=== PATIENT | female | born 1990 | race Two or more races ===

== ENCOUNTER 2019-11-14 05:22 | Emergency (ER) | payer BC, OTHER ==
[~2019-11-14] VITALS: Ht 160 cm; Wt 52.2 kg
--- NOTE | 2019-11-14 05:30 | NUR ---
ED Nurse Note: Pt ambulated to ED from home c/o fast heartbeat that woke her up, a few hrs ago. HR 170's, pt states this has happened before years ago. Pt denies cardiac hx otherwise, pt placed on property assessment monitor, ERMD at bedside, labs sent
[2019-11-14 05:35] VITALS: BP 127/95
[2019-11-14] MEDS ORDERED: Adenosine 6mg/2ml Inj IVP ONE (05:45)
--- NOTE | 2019-11-14 05:47 | Emergency Room Report ---
History of Present Illness General Chief Complaint: Palpitations Source: Patient (Kevyn Weston MD) Present Illness HPI This is a 29-year-old female with no past medical history. She presents with chief complaint of palpitation. She says she had this problem on and off for years but never been able to capture it. Sometimes with a heart rate beating fast, she can count beats per minute. Usually lasts about 30 minutes and go away. This onset occurred around 4:00 AM. She was working upstairs and felt her heart beating fast. She was able to get an EKG which showed heart rate in the 170s. She denies any shortness of breath. She denies any nausea vomiting. He denies any chest pain or dizziness or syncope. Never had any follow-up with regulatory affairs consultant before. (Kevyn Weston MD) Allergies: Coded Allergies: No Known Allergies (Unverified , 11/14/19) COVID-19 Screening Contact w/high risk pt: Yes Recent Travel to affected area: No Experienced COVID-19 symptoms?: No COVID-19 Testing performed BOBBIN COLLECTOR: No (Kevyn Weston MD) Patient History Past Medical History: see triage record, old chart reviewed Past Surgical History: none Pertinent Family History: none Social History: Denies: smoking Last Menstrual Period: current Now: No Immunizations: other Reviewed Nursing Documentation: PMH: Agreed; PSxH: Agreed (Kevyn Weston MD) Review of Systems Eye: Denies: eye pain, blurred vision ENT: Denies: ear pain, nose congestion, throat swelling Respiratory: Denies: cough, shortness of breath Cardiovascular: Reports: palpitations; Denies: chest pain Gastrointestinal: Denies: abdominal pain, diarrhea, nausea, vomiting Musculoskeletal: Denies: back pain, joint pain Skin: Denies: rash Neurological: Denies: headache, numbness Endocrine: Denies: increased thirst, increased urine Hematologic/Lymphatic: Denies: easy bruising All Other Systems: negative except mentioned in HPI (Kevyn Weston MD) Physical Exam Vital Signs Date Time Temp Pulse Resp B/P (MAP) Pulse Ox O2 Delivery O2 Flow Rate FiO2 11/14/19 05:27 98.1 173 16 127/95 (106) 97 Room Air Vitals with tachycardia Sp02 EP Interpretation: reviewed, normal General Appearance: well appearing, no apparent distress, alert Head: normocephalic, atraumatic Eyes: bilateral eye PERRL, bilateral eye EOMI ENT: hearing grossly normal, normal pharynx Neck: full range of motion, supple, no meningismus Respiratory: chest non-tender, lungs clear, normal breath sounds Cardiovascular #1: no murmur, tachycardia Gastrointestinal: normal bowel sounds, non tender, no mass, no organomegaly, no bruit, non-distended Musculoskeletal: back normal, normal range of motion, gait/station normal Psychiatric: mood/affect normal (Kevyn Weston MD) Medical Decision Making Diagnostic Impression: Primary Impression: Palpitations Additional Impression: SVT (supraventricular tachycardia) ER Course Patient presents with palpitation and a heart rate in the 170s. It appeared to be SVT. He converted to a sinus tachycardic rhythm after adenosine. Patient has no syncope or dizziness. Labs are pending. I will sign this patient out to Dr. Carcamo for final disposition. (Kevyn Weston MD) ER Course Hospital Course 29-year-old F presents ED complaining of palpitations Patient initially seen and evaluated by Dr Weston; please see his note for full history and physical Clinical course EKG shows SVT to the 130s. Given adenosine. Given IV fluids. labs reviewed- all electrolytes normal, no leukocytosis, hemoglobin/hematocrit stable, ddimer ok, TSH ok EKG - SVT, no acute ischemic changes interpreted by me Patient received adenosine 6 mg. Given IV fluids. Given atenolol. Tachycardia resolved. Patient states she feels better. I discussed findings with patient. Patient prefers to be discharged at this time. Will provide close follow-up. Will provide prescription for atenolol. I. I feel this is a highly complex case requiring extensive working including EKG/Rhythm strip, Xray/CT/US, Blood/urine lab work, repeat exams while in ED, and administration of strong opiates/narcotics for pain control, admission to hospital or close patient follow up. Diagnosis - palpitations, SVT Stable and discharged to home with Rx Atenolol. Instructed to followup with PMD. Return to ED if symptoms recur or worsen Labs Test 11/14/19 05:45 11/14/19 06:30 White Blood Count 5.8 K/UL (4.8-10.8) Red Blood Count 5.32 M/UL (4.20-5.40) Hemoglobin 16.0 G/DL (12.0-16.0) Hematocrit 46.8 % (37.0-47.0) Mean Corpuscular Volume 88 FL (80-99) Mean Corpuscular Hemoglobin 30.1 PG (27.0-31.0) Mean Corpuscular Hemoglobin Concent 34.2 G/DL (32.0-36.0) Red Cell Distribution Width 11.7 % (11.6-14.8) Platelet Count 203 K/UL (150-450) Mean Platelet Volume 8.2 FL (6.5-10.1) Neutrophils (%) (Auto) 60.8 % (45.0-75.0) Lymphocytes (%) (Auto) 29.8 % (20.0-45.0) Monocytes (%) (Auto) 7.9 % (1.0-10.0) Eosinophils (%) (Auto) 0.6 % (0.0-3.0) Basophils (%) (Auto) 0.9 % (0.0-2.0) Prothrombin Time 10.8 SEC (9.30-11.50) Prothromb Time International Ratio 1.0 (0.9-1.1) Activated Partial Thromboplast Time 29 SEC (23-33) D-Dimer 0.19 mg/L FEU (0.00-0.49) Sodium Level 144 MMOL/L (136-145) Potassium Level 3.9 MMOL/L (3.5-5.1) Chloride Level 106 MMOL/L (98-107) Carbon Dioxide Level 26 MMOL/L (21-32) Anion Gap 12 mmol/L (5-15) Blood Urea Nitrogen 10 mg/dL (7-18) Creatinine 0.8 MG/DL (0.55-1.30) Estimat Glomerular Filtration Rate > 60 mL/min (>60) Glucose Level 114 MG/DL (74-106) Calcium Level 9.3 MG/DL (8.5-10.1) Total Bilirubin 0.2 MG/DL (0.2-1.0) Aspartate Amino Transf (AST/SGOT) 18 U/L (15-37) Alanine Aminotransferase (ALT/SGPT) 22 U/L (12-78) Alkaline Phosphatase 88 U/L (46-116) Troponin I 0.000 ng/mL (0.000-0.056) Total Protein 7.8 G/DL (6.4-8.2) Albumin 4.3 G/DL (3.4-5.0) Globulin 3.5 g/dL Albumin/Globulin Ratio 1.2 (1.0-2.7) Thyroid Stimulating Hormone (TSH) 1.607 uiU/mL (0.358-3.740) Free Thyroxine 1.18 NG/DL (0.76-1.46) Urine Color Pale yellow Urine Appearance Clear Urine pH 7 (4.5-8.0) Urine Specific [place] 1.015 (1.005-1.035) Urine Protein Negative (NEGATIVE) Urine Glucose (UA) Negative (NEGATIVE) Urine Ketones Negative (NEGATIVE) Urine Blood 2+ (NEGATIVE) Urine Nitrite Negative (NEGATIVE) Urine Bilirubin Negative (NEGATIVE) Urine Urobilinogen Normal MG/DL (0.0-1.0) Urine Leukocyte Esterase Negative (NEGATIVE) Urine RBC 2-4 /HPF (0 - 2) Urine WBC 0-2 /HPF (0 - 2) Urine Squamous Epithelial Cells Few /LPF (NONE/OCC) Urine Bacteria Occasional /HPF (NONE) Urine HCG, Qualitative Negative (NEGATIVE) (Darnell Carcamo MD) EKG Diagnostic Results Rate: tachycardiac Rhythm: other - SVT (Kevyn Weston MD) Rate: tachycardiac Rhythm: other - SVT ST Segments: no acute changes ASA given to the pt in ED: No (Darnell Carcamo MD) Rhythm Strip Diag. Results EP Interpretation: yes Rate: 115 Rhythm: NSR, no PVC's, no ectopy (Kevyn Weston MD) EP Interpretation: yes Rhythm: no PVC's, no ectopy (Darnell Carcamo MD) Last Vital Signs Date Time Temp Pulse Resp B/P (MAP) Pulse Ox O2 Delivery O2 Flow Rate FiO2 11/14/19 05:27 98.1 173 16 127/95 (106) 97 Room Air Status: improved (Kevyn Weston MD) Status: improved (Darnell Carcamo MD) Disposition: HOME, SELF-CARE Condition: Stable Scripts Atenolol* (TENORMIN*) 25 Mg Tablet 25 MG ORAL DAILY, #14 TAB Prov: Darnell Carcamo MD 11/14/19 Referrals: NOT CHOSEN IPA/,REFERRING (PCP) Kevyn Weston MD November 14, 2019 05:47 Darnell Carcamo MD November 14, 2019 08:39
[2019-11-14] MEDS ORDERED: Adenosine 6mg/2ml Inj ONE (05:50)
[2019-11-14 06:00] VITALS: BP 127/95
[2019-11-14 06:06] LABS: BASOPHILS % (AUTO) 0.9 % (0.0-2.0); EOSINOPHILS % (AUTO) 0.6 % (0.0-3.0); HEMATOCRIT 46.8 % (37.0-47.0); LYMPHOCYTES % (AUTO) 29.8 % (20.0-45.0); MEAN CORPUSCULAR VOLUME 88 FL (80-99); MONOCYTES % (AUTO) 7.9 % (1.0-10.0); NEUTROPHILS % (AUTO) 60.8 % (45.0-75.0); PLATELET COUNT 203 K/UL (150-450); RED BLOOD COUNT 5.32 M/UL (4.20-5.40); RED CELL DISTRIBUTION WIDTH 11.7 % (11.6-14.8); WHITE BLOOD COUNT 5.8 K/UL (4.8-10.8)
[2019-11-14 06:21] LABS: ANION GAP 12 mmol/L (5-15); BLOOD UREA NITROGEN 10 mg/dL (7-18); CALCIUM 9.3 MG/DL (8.5-10.1); CARBON DIOXIDE 26 MMOL/L (21-32); CHLORIDE 106 MMOL/L (98-107); CREATININE 0.8 MG/DL (0.55-1.30); POTASSIUM 3.9 MMOL/L (3.5-5.1); SODIUM 144 MMOL/L (136-145)
--- NOTE | 2019-11-14 06:32 | Diagnostic Imaging Report ---
EXAM: XR Chest, 1 View CLINICAL HISTORY: PAIN TECHNIQUE: Frontal view of the chest. COMPARISON: No relevant prior studies available. FINDINGS: Lungs: Unremarkable. No consolidation. Pleural space: Unremarkable. No pneumothorax. Heart: Unremarkable. No cardiomegaly. Mediastinum: Unremarkable. Bones/joints: Unremarkable. IMPRESSION: No acute pulmonary disease.
[2019-11-14 06:34] LABS: ALANINE AMINOTRANSFERASE 22 U/L (12-78); ALBUMIN 4.3 G/DL (3.4-5.0); ALBUMIN/GLOBULIN RATIO 1.2 (1.0-2.7); ALKALINE PHOSPHATASE 88 U/L (46-116); ASPARTATE AMINO TRANSFERASE 18 U/L (15-37); BILIRUBIN,TOTAL 0.2 MG/DL (0.2-1.0)
--- NOTE | 2019-11-14 07:02 | NUR ---
HAND-OFF: Report given to ARTUR Quevedo.
[2019-11-14 07:05] VITALS: BP 123/94
--- NOTE | 2019-11-14 07:05 | NUR ---
ED Nurse Note: Pt endorsement received from ARTUR Forman. PT shows NAD at this time. pt denies pain. pt still shows sinus tach at 107. no further orders at this time.
[2019-11-14 07:08] LABS: APPEARANCE,URINE CLEAR; BILIRUBIN, URINE NEGATIVE (NEGATIVE); COLOR,URINE PALE YELLOW; GLUCOSE, URINE (UA) NEGATIVE (NEGATIVE); KETONES,URINE NEGATIVE (NEGATIVE); LEUKOCYTE ESTERASE ,URINE NEGATIVE (NEGATIVE); NITRITE,URINE NEGATIVE (NEGATIVE); PH,URINE 7 (4.5-8.0); PROTEIN,URINE NEGATIVE (NEGATIVE); UROBILINOGEN,URINE NORMAL MG/DL (0.0-1.0)
[2019-11-14] MEDS ORDERED: Atenolol 25mg tab ORAL ONE (07:15)
[2019-11-14] MEDS ORDERED: ATENOLOL25 MG ORAL (07:28)
[2019-11-14 07:30] VITALS: BP 125/96
--- NOTE | 2019-11-14 07:30 | NUR ---
ER DISCHARGE NOTE: Patient is cleared to be discharged per ERMD, pt is aox4, on room air, with stable vital signs. pt was given dc and prescription instructions, pt was able to verbalize understanding, pt id band and iv site removed without complications. pt is able to ambulate with steady gait. pt took all belongings.
[2019-11-14 07:31] VITALS: BP 125/96
== END 2019-11-14 07:30 | disposition home or self-care (01) ==
LOC: EMR 05:43 → EEVIPCON 05:43 → EMR 07:30
DX: R00.2 Palpitations (principal); I47.1 Supraventricular tachycardia
CPT/HCPCS: 36415; 71045; 80053; 81003; 81025; 84439; 84443; 84484; 85025; 85379; 85610; 85730; 93005; 96361; 96374; 99284; J0153; J7030

== ENCOUNTER 2019-12-04 14:20 | Emergency (ER) | payer BC, OTHER ==
[~2019-12-04] VITALS: Ht 160 cm; Wt 52.2 kg
[~2019-12-04 14:20] MED LIST: ATENOLOL25 MG ORAL
[2019-12-04] MEDS ORDERED: Adenosine 6mg/2ml Inj IVP ONE (14:45)
[2019-12-04] MEDS ORDERED: Metoprolol Tartrate 5mg/5ml Inj IVP ONE (15:00)
[2019-12-04 15:10] LABS: BASOPHILS % (AUTO) 0.7 % (0.0-2.0); EOSINOPHILS % (AUTO) 0.1 % (0.0-3.0); HEMATOCRIT 43.3 % (37.0-47.0); HEMOGLOBIN 14.1 G/DL (12.0-16.0); LYMPHOCYTES % (AUTO) 28.2 % (20.0-45.0); MEAN CORPUSCULAR VOLUME 94 FL (80-99); MONOCYTES % (AUTO) 7.7 % (1.0-10.0); NEUTROPHILS % (AUTO) 63.3 % (45.0-75.0); PLATELET COUNT 203 K/UL (150-450); RED BLOOD COUNT 4.62 M/UL (4.20-5.40); RED CELL DISTRIBUTION WIDTH 12.7 % (11.6-14.8); WHITE BLOOD COUNT 8.3 K/UL (4.8-10.8)
--- NOTE | 2019-12-04 15:12 | Emergency Room Report ---
History of Present Illness General Chief Complaint: Palpitations Source: Patient Present Illness HPI Patient presents with complaints of palpitations She has had this symptom in the past and has been found to have SVT patient required chemical Cardioversion on last visit Patient denies any chest pain with this denies any shortness of breath however she does report significant palpitations sensation Denies any vomiting or diarrhea denies any fevers chills Patient is on beta-erica on a daily basis and did take her medication today Allergies: Coded Allergies: No Known Allergies (Unverified , 11/14/19) COVID-19 Screening Contact w/high risk pt: No Recent Travel to affected area: No Experienced COVID-19 symptoms?: No COVID-19 Testing performed MUD ANALYSIS WELL LOGGING CAPTAIN: No Patient History Past Medical History: see triage record Reviewed Nursing Documentation: PMH: Agreed; PSxH: Agreed Nursing Documentation-PMH Past Medical History: No History, Except For Review of Systems All Other Systems: negative except mentioned in HPI Physical Exam Vital Signs Date Time Temp Pulse Resp B/P (MAP) Pulse Ox O2 Delivery O2 Flow Rate FiO2 12/04/19 14:27 99.1 165 16 124/88 (100) 98 Room Air Sp02 EP Interpretation: reviewed, normal General Appearance: well appearing, no apparent distress Head: normocephalic, atraumatic Eyes: bilateral eye PERRL, bilateral eye EOMI ENT: hearing grossly normal, normal pharynx, TMs + canals normal, uvula midline Neck: full range of motion, supple, no meningismus, no bony tend Respiratory: lungs clear, normal breath sounds, no rhonchi, no respiratory distress, no retraction, no accessory muscle use Cardiovascular #1: no edema, no gallop, no JVD, no murmur, tachycardia Gastrointestinal: normal bowel sounds, non tender, soft, no mass, no organomegaly, non-distended, no guarding, no hernia, no pulsatile mass, no rebound Genitourinary: no CVA tenderness Musculoskeletal: normal inspection Neurologic: motor strength/tone normal, furniture mover helper III-XII nml as tested, oriented x3 , sensory intact, responsive Psychiatric: mood/affect normal Skin: no rash Lymphatic: normal inspection, no adenopathy Medical Decision Making Diagnostic Impression: Primary Impression: SVT (supraventricular tachycardia) ER Course Patient is a fairly complex patient with multiple differential to consideration including but not limited to cardiac cardiopulmonary and vascular emergencies Patient does have a sinus tach rhythm after placed on rhythm strip and EKG shows evidence of SVT Patient was getting set for chemical conversion with adenosine Vasovagal maneuvers were initially performed without resolution and prior to administering the medication Patient did self convert to sinus rhythm EKG #2 is obtained and does show a sinus rhythm Patient symptoms have improved Dr. Dudley from cardiology is also in the ER and reviewed the patient Low-dose of beta-erica was given given the patient's heart rate in the 100 range And patient is getting set up with follow-up for further cardiac outpatient intervention Labs Test 12/04/19 14:45 White Blood Count 8.3 K/UL (4.8-10.8) Red Blood Count 4.62 M/UL (4.20-5.40) Hemoglobin 14.1 G/DL (12.0-16.0) Hematocrit 43.3 % (37.0-47.0) Mean Corpuscular Volume 94 FL (80-99) Mean Corpuscular Hemoglobin 30.4 PG (27.0-31.0) Mean Corpuscular Hemoglobin Concent 32.5 G/DL (32.0-36.0) Red Cell Distribution Width 12.7 % (11.6-14.8) Platelet Count 203 K/UL (150-450) Mean Platelet Volume 10.6 FL (6.5-10.1) Neutrophils (%) (Auto) 63.3 % (45.0-75.0) Lymphocytes (%) (Auto) 28.2 % (20.0-45.0) Monocytes (%) (Auto) 7.7 % (1.0-10.0) Eosinophils (%) (Auto) 0.1 % (0.0-3.0) Basophils (%) (Auto) 0.7 % (0.0-2.0) Prothrombin Time 11.5 SEC (9.30-11.50) Prothromb Time International Ratio 1.0 (0.9-1.1) Activated Partial Thromboplast Time 28 SEC (23-33) Sodium Level 138 MMOL/L (136-145) Potassium Level 3.5 MMOL/L (3.5-5.1) Chloride Level 100 MMOL/L (98-107) Carbon Dioxide Level 24 MMOL/L (21-32) Anion Gap 14 mmol/L (5-15) Blood Urea Nitrogen 11 mg/dL (7-18) Creatinine 0.8 MG/DL (0.55-1.30) Estimat Glomerular Filtration Rate > 60 mL/min (>60) Glucose Level 138 MG/DL (74-106) Calcium Level 9.3 MG/DL (8.5-10.1) Total Bilirubin 0.7 MG/DL (0.2-1.0) Aspartate Amino Transf (AST/SGOT) 17 U/L (15-37) Alanine Aminotransferase (ALT/SGPT) 19 U/L (12-78) Alkaline Phosphatase 65 U/L (46-116) Total Creatine Kinase 68 U/L (26-308) Troponin I 0.000 ng/mL (0.000-0.056) Total Protein 7.5 G/DL (6.4-8.2) Albumin 4.2 G/DL (3.4-5.0) Globulin 3.3 g/dL Albumin/Globulin Ratio 1.3 (1.0-2.7) Lipase 108 U/L (73-393) EKG Diagnostic Results Rate: tachycardiac Rhythm: other - svt ST Segments: other - Nonspecific ST changes findings consistent with SVT Rhythm Strip Diag. Results EP Interpretation: yes Rate: 150 Rhythm: no PVC's, other - svt Chest X-Ray Diagnostic Results Chest X-Ray Diagnostic Results : Chest X-Ray Ordered: Yes Indication: Chest Pain EP Interpretation: Yes Interpretation: no consolidation, no effusion, no pneumothorax Impression: No acute disease Electronically Signed by: Bri Espinosa DO Last Vital Signs Date Time Temp Pulse Resp B/P (MAP) Pulse Ox O2 Delivery O2 Flow Rate FiO2 12/04/19 15:03 99 123/82 12/04/19 14:27 99.1 16 98 Room Air Status: improved Disposition: HOME, SELF-CARE Condition: Improved Additional Instructions: Patient is provided with the discharge instructions notified to follow up with primary doctor in the next 2-3 days otherwise return to the er with any worsening symptoms. Please note that this report is being documented using [employer] technology. This can lead to erroneous entry secondary to incorrect interpretation by the dictating instrument. Bri Espinosa DO Dec 04, 2019 15:12
[2019-12-04 15:14] LABS: ANION GAP 14 mmol/L (5-15); BLOOD UREA NITROGEN 11 mg/dL (7-18); CALCIUM 9.3 MG/DL (8.5-10.1); CARBON DIOXIDE 24 MMOL/L (21-32); CHLORIDE 100 MMOL/L (98-107); CREATININE 0.8 MG/DL (0.55-1.30); POTASSIUM 3.5 MMOL/L (3.5-5.1); SODIUM 138 MMOL/L (136-145)
[2019-12-04 15:18] VITALS: BP 123/82
[2019-12-04 15:18] LABS: ALANINE AMINOTRANSFERASE 19 U/L (12-78); ALBUMIN 4.2 G/DL (3.4-5.0); ALBUMIN/GLOBULIN RATIO 1.3 (1.0-2.7); ALKALINE PHOSPHATASE 65 U/L (46-116); ASPARTATE AMINO TRANSFERASE 17 U/L (15-37); BILIRUBIN,TOTAL 0.7 MG/DL (0.2-1.0); CREATINE KINASE 68 U/L (26-308)
[2019-12-04 15:25] VITALS: BP 123/82
--- NOTE | 2019-12-04 19:18 | Diagnostic Imaging Report ---
Indication: Chest pain Technique: One view of the chest Comparison: 11/14/2019 Findings: Lungs and pleural spaces are clear. The heart size is normal. Findings are unchanged Impression: Negative
== END 2019-12-04 15:30 | disposition home or self-care (01) ==
LOC: EEVIPCON 15:00 → EMR 15:00
DX: I47.1 Supraventricular tachycardia (principal); R00.0 Tachycardia, unspecified
CPT/HCPCS: 36415; 71045; 80053; 82550; 83690; 84484; 85025; 85610; 85730; 93005; 96361; 96374; 99284; J7030